=== PATIENT | male | born 1960 | race Caucasian/White ===

== ENCOUNTER 2017-04-30 15:25 | Emergency (ER) | payer OTHER ==
[2017-04-30 15:29] VITALS: BP 168/107; BMI 33.0
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
[2017-04-30] MEDS ORDERED: TORADOL 60 MG VIAL IM ONE (16:30)
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
[2017-04-30] MEDS ORDERED: TORADOL 60 MG VIAL ONE (16:32)
== END 2017-04-30 16:42 | disposition home or self-care (01) ==
LOC: ER 15:25
DX: M54.2 Cervicalgia (principal)
CPT/HCPCS: 72125; 96372; 99282; J1885